=== PATIENT | female | born 1970 | race Hispanic/Latino ===

== ENCOUNTER 2017-08-14 09:33 | Emergency (ER) | payer BC, OTHER ==
[~2017-08-14] VITALS: Ht 162.6 cm; Wt 72.6 kg
[~2017-08-14 09:33] MED LIST: CARDURA2 MG PO; WELLBUTRIN SR150 MG PO
[2017-08-14] MEDS ORDERED: PENICILLIN G BENZATHINE LA 1.2 MU TBX IM STA (10:35)
[2017-08-14 11:52] VITALS: BP 105/62
== END 2017-08-14 10:40 | disposition home or self-care (01) ==
LOC: FSED 09:33
DX: J02.0 Streptococcal pharyngitis (principal); R50.9 Fever, unspecified
CPT/HCPCS: 71046; 83518; 87400; 99283; J0561

== ENCOUNTER → 2017-09-19 | Outpatient (CLI) | payer BC ==
--- NOTE | 2017-09-28 18:12 | Diagnostic Imaging Report ---
#[id number] - MGSCRBIL #BILATERAL DIGITAL SCREENING MAMMOGRAM WITH CAD: 09/19/2017 CLINICAL: Routine screening. Comparison is made to exams dated: 06/08/2014 mammogram, 03/24/2013 mammogram and 03/12/2013 mammogram - [facility]. Current study contains 4 films. The tissue of both breasts is heterogeneously dense. This may lower the sensitivity of mammography. Current study was also evaluated with a Computer Aided Detection (CAD) system. No significant masses, calcifications, or other findings are seen in either breast. There has been no significant interval change. IMPRESSION: BENIGN There is no mammographic evidence of malignancy. A 1 year screening mammogram is recommended. The patient will be notified by letter of the results. Lenny mccormick/prasanna:09/27/2017 13:47:39 Station Examiner: Linda CALDWELL(R)(M), [facility] letter sent: Normal Exam Mammogram BI-RADS: 2 Benign
== END ==
LOC: MAMMO 10:38
PROVIDERS: ATTEND Obstetrics & Gynecology
DX: Z12.31 Encounter for screening mammogram for malignant neoplasm of breast (principal)
CPT/HCPCS: 77067

== ENCOUNTER → 2019-03-06 | Outpatient (CLI) | payer BC ==
--- NOTE | 2019-03-06 15:33 | Diagnostic Imaging Report ---
MRI of the right foot with and without contrast. History: Stress fracture of right heel. Heel pain. Decreased range of motion. Pain not responding to conservative management. Technique: Multiplanar multisequence MRI of the right foot with and without intravenous contrast. 16 cc IV gadolinium contrast material was administered Comparison: None Findings: Abnormal soft tissue edema with abnormal contrast enhancement and underlying bone marrow edema at the medial cord of the plantar fascia with midsubstance degeneration and thickening involving the medial cord of the plantar fascia. This is best seen on sagittal series 5 image 9 through 11. No plantar fascial tear or retraction is seen. The Achilles tendon is intact. No acute fracture, subluxation or avascular necrosis. Specifically, no stress fracture is seen in the calcaneus or talus. Small tibiotalar joint effusion and synovitis. No ligamentous or tendon tear. The visualized muscles are normal in size, signal intensity and morphology. No talar dome osteochondral lesion. Impression: Findings most consistent with plantar fasciitis involving the medial cord of the plantar fascia at the inferior calcaneal insertion site. No tear or retraction is seen. There is abnormal bone marrow edema in the inferior posterior calcaneus with abnormal adjacent contrast enhancement. No acute fracture, subluxation or avascular necrosis. Specifically, no stress fracture is seen in the calcaneus or talus. Signed by: Dr. Wei Sewell M.D. on 03/06/2019 3:29 PM
== END ==
LOC: MRI 13:56
PROVIDERS: ATTEND Podiatrist Foot & Ankle Surgery
DX: M79.671 Pain in right foot (principal); M72.2 Plantar fascial fibromatosis; R60.9 Edema, unspecified

== ENCOUNTER 2019-05-13 14:56 | Outpatient (RCR) | payer BC | END 2019-05-15 | LOC: PT 14:56 | PROVIDERS: ATTEND Podiatrist Foot & Ankle Surgery | DX: M72.2 Plantar fascial fibromatosis (principal); M84.374A Stress fracture, right foot, initial encounter for fracture; M79.671 Pain in right foot; M25.671 Stiffness of right ankle, not elsewhere classified; M62.81 Muscle weakness (generalized); R26.2 Difficulty in walking, not elsewhere classified ==

== ENCOUNTER 2019-06-10 15:00 | Outpatient (RCR) | payer BC | END 2019-06-14 | LOC: PT 15:00 | PROVIDERS: ATTEND Podiatrist Foot & Ankle Surgery | DX: M84.374A Stress fracture, right foot, initial encounter for fracture (principal); M79.671 Pain in right foot; M72.2 Plantar fascial fibromatosis ==

== ENCOUNTER → 2019-08-26 | Outpatient (CLI) | payer BC ==
--- NOTE | 2019-08-26 16:58 | Diagnostic Imaging Report ---
HISTORY : Menorrhagia COMPARISON : None Comment: Ultrasound examination of the pelvis was performed transabdominally and transvaginally. The uterus is homogeneous in echotexture. The uterus measures 8.7 x 4.8 x 5.8 cm. The endometrial stripe appears unremarkable and measures 0.3 cm in maximum thickness. The right ovary measures 3.6 x 1.8 x 2.8 cm and contains an anechoic cyst which measures 1.7 x 1.5 x 1.8 cm cm. The left ovary measures 2.4 x 1.9 x 2.6 cm. There is no evidence of fluid in the cul-de-sac. IMPRESSION : Right ovarian cyst, almost certainly benign. No further follow-up imaging is recommended. Signed by: Marcio Vargas MD on 08/26/2019 4:56 PM
--- NOTE | 2019-09-01 09:10 | Diagnostic Imaging Report ---
#[id number] - MGSCRBIL #BILATERAL DIGITAL SCREENING MAMMOGRAM WITH CAD: 08/26/2019 CLINICAL: Routine screening. Comparison is made to exams dated: 09/19/2017 mammogram and 06/08/2014 mammogram - [facility]. Current study contains 4 films. The tissue of both breasts is heterogeneously dense. This may lower the sensitivity of mammography. Current study was also evaluated with a Computer Aided Detection (CAD) system. No significant masses, calcifications, or other findings are seen in either breast. IMPRESSION: NEGATIVE There is no mammographic evidence of malignancy. A 1 year screening mammogram is recommended. The patient will be notified by letter of the results. DARIANA ANN M.D. ct/penrad:08/29/2019 16:53:53 Sales And Operations Trainee: Linda CALDWELL(R)(M), [facility] letter sent: Normal Exam Mammogram BI-RADS: 1 Negative
== END ==
LOC: US 14:42
PROVIDERS: ATTEND Obstetrics & Gynecology
DX: Z12.31 Encounter for screening mammogram for malignant neoplasm of breast (principal); N92.1 Excessive and frequent menstruation with irregular cycle
CPT/HCPCS: 76830; 76856; 77067

== ENCOUNTER 2019-09-02 09:56 | Inpatient (IN) | payer BC ==
[2019-09-01 14:29] LABS: BASOPHILS # (AUTO) 0.1 (0.0-0.1); BASOPHILS % 0.7 % (0.0-1.0); EOSINOPHILS # (AUTO) 0.2 (0.0-0.4); EOSINOPHILS % 1.6 % (0.0-6.0); HEMATOCRIT 38.4 % (34.2-44.1); HEMOGLOBIN 12.8 g/dL (12.0-16.0); LYMPHOCYTES # (AUTO) 3.3 (1.0-3.2); LYMPHOCYTES % 33.7 % (18.0-39.1); MEAN CORPUSCULAR HEMOGLOBIN 31.3 pg (28-32); MEAN CORPUSCULAR HGB CONC 33.3 g/dL (31-35); MEAN CORPUSCULAR VOLUME 93.9 fL (81-99); MONOCYTES # (AUTO) 0.5 (0.2-0.8); MONOCYTES % 5.5 % (4.4-11.3); NEUTROPHILS # (AUTO) 5.8 (2.1-6.9); NEUTROPHILS % 58.2 % (38.7-80.0); PLATELET COUNT 358 x10e3/uL (140-360); RED BLOOD COUNT 4.09 x10e6/uL (3.6-5.1)
[2019-09-01 14:47] LABS: ALANINE AMINOTRANSFERASE 12 IU/L (0-55); ALBUMIN 3.8 g/dL (3.5-5.0); ALBUMIN/GLOBULIN RATIO 1.1 (0.8-2.0); ALKALINE PHOSPHATASE 62 IU/L (40-150); ANION GAP 15.1 mmol/L (8-16); BLOOD UREA NITROGEN 12 mg/dL (7-26); BUN/CREATININE RATIO 15 (6-25); CALCIUM 9.4 mg/dL (8.4-10.2); CARBON DIOXIDE 24 mmol/L (22-29); CHLORIDE 104 mmol/L (98-107); CREATININE, SERUM 0.78 mg/dL (0.57-1.11); EST GLOMERULAR FILTRATION RATE > 60 ML/MIN (60-); GLUCOSE 126 mg/dL (74-118); POTASSIUM 4.1 mmol/L (3.5-5.1); SODIUM 139 mmol/L (136-145)
[~2019-09-02] VITALS: Ht 162.6 cm; Wt 81.6 kg
[2019-09-02] MEDS ORDERED: CEFAZOLIN SOD 1 GM/NS 50ML 100 ML IV ONE (11:05)
[2019-09-02] MEDS ORDERED: BUPIVACAINE 0.25% 30ML SDV INJ ONE (12:45)
[2019-09-02] MEDS ORDERED: HYDROMORPHONE 2MG/ML 2 MG/ML ML ONE (12:45)
[2019-09-02] MEDS ORDERED: BUPIVACAINE LIPOSOME/PF 266 MG/20 ML IJ ONE (12:46)
[2019-09-02] MEDS ORDERED: ACETAMINOPHEN 1000 MG/100 ML 100 ML IV ONE (12:46)
[2019-09-02] MEDS ORDERED: NALOXONE HCL INJ 0.4 MG/ML AMP IV PRN (14:30)
[2019-09-02] MEDS ORDERED: MORPHINE SULFATE 1 MG/ML 30ML PCA IV PRN (14:30)
[2019-09-02] MEDS ORDERED: DOCUSATE SODIUM 100 MG CAP PO PRN (14:30)
[2019-09-02] MEDS ORDERED: SIMETHICONE 80 MG CHEW PO PRN (14:30)
[2019-09-02] MEDS ORDERED: DIPHENHYDRAMINE HCL 25 MG CAP PO PRN (14:30)
[2019-09-02] MEDS ORDERED: BISACODYL 5 MG TAB EC PO PRN (14:30)
[2019-09-02] MEDS ORDERED: ONDANSETRON HCL INJ 2MG/ML 2ML 2 MG/ML VIAL IV PRN (14:30)
[2019-09-02] MEDS ORDERED: SUGAMMADEX SODIUM 200 MG/2 ML VIAL IV ONE (15:05)
[2019-09-02] MEDS ORDERED: MORPHINE SULFATE INJ 4 MG/ML INJ 1ML ONE (16:34)
[2019-09-02] MEDS ORDERED: PHENYLEPHRINE HCL 1% 10 MG/ML VIAL ONE (17:44)
[2019-09-02] MEDS ORDERED: PROPOFOL IV EMULSION 10 MG/ML 20 ML VIAL ONE (17:44)
[2019-09-02] MEDS ORDERED: DEXAMETHASONE SOD PHOS INJ 4 MG/ML VIAL ONE (17:44)
[2019-09-02] MEDS ORDERED: SEVOFLURANE INHAL SOLN 250 ML PEN BTL ONE (17:44)
[2019-09-02] MEDS ORDERED: ONDANSETRON HCL INJ 2MG/ML 2ML 2 MG/ML VIAL ONE (17:44)
[2019-09-02] MEDS ORDERED: KETOROLAC TROMETHAMINE 30 MG/ML VIAL ONE (17:44)
[2019-09-02] MEDS ORDERED: LIDOCAINE HCL 2% LOCAL INJ 5 ML SDV VIAL INJ ONE (17:44)
[2019-09-02] MEDS ORDERED: ROCURONIUM BROMIDE 10 MG/ML 5ML VIAL ONE (17:44)
[2019-09-02 18:08] VITALS: BP 126/84
[2019-09-02 18:20] VITALS: BP 126/84
[2019-09-02] MEDS ORDERED: FENTANYL CITRATE/PF 100MCG/2 ML INJ ONE (18:26)
[2019-09-02] MEDS ORDERED: MIDAZOLAM HCL 2 MG/2 ML VIAL ONE (18:26)
--- NOTE | 2019-09-02 18:29 | NUR ---
patient received from OR via stretcher. see admit assess. ML abd incision with dressing and abd binder in place. LOUIE drain x1 to LLQ with serosanguineous drainage. PRINTED CIRCUIT BOARD REWORKER morphine in place, radha's and scd's in place. IV infusing well. vitals stable with no distress.
[2019-09-02 20:00] VITALS: BP 117/65
[2019-09-02] MEDS: LACTATED RINGER'S 1,000 ML IV SCH ×2 (20:22→22:30)
[2019-09-02 20:25] VITALS: BP 117/65
--- NOTE | 2019-09-02 20:39 | Operative Report ---
DATE OF PROCEDURE: 09/02/2019 SURGEON: Royce Ahmadi MD PREOPERATIVE DIAGNOSES: 1. Menorrhagia. 2. Dysmenorrhea. POSTOPERATIVE DIAGNOSES: 1. Menorrhagia. 2. Dysmenorrhea. PROCEDURES: 1. Total abdominal hysterectomy. 2. Right salpingo-oophorectomy. 3. Left salpingectomy. SLIP FILLER: Robbie Reich MD ANESTHESIA: General. ESTIMATED BLOOD LOSS: 50 mL. COMPLICATIONS: None. SPECIMENS REMOVED: Uterus, cervix, right ovary, and bilateral fallopian tubes to Pathology. SIGNIFICANT FINDINGS: Grossly normal uterus, tubes, and ovaries. TECHNIQUE: The patient was taken to the operating room where general anesthesia was administered. She was then prepped and draped in the usual sterile fashion. This procedure was done concurrently with a ventral hernia repair, which was done by Dr. Robbie Reich. That portion of the procedure will be dictated by him. The horizontal lower abdominal skin incision was made by Dr. Reich and was dissected down to the level of the fascia and this fascia exposed and an infraumbilical midline vertical fascial incision was made. Once this was done, the peritoneum was entered sharply and the peritoneal incision extended with sharp dissection with good visualization of the bladder. The Bookwalter retractor was then placed and the bowel was packed away with moistened laparotomy sponges. The uterus was identified and grasped with a thyroid Luis Carlos clamp at the fundus and the left arm ligament was identified and doubly suture ligated with 0 Vicryl suture and then transected with Bovie. The broad ligament was then opened anteriorly and posteriorly and the vesicouterine peritoneum dissected anteriorly and the bladder dissected off the uterus and cervix anteriorly. Once this was done, a window was created in the posterior broad ligament and the uteroovarian ligament was doubly clamped and transected and the pedicle double ligated with 0 Vicryl suture with excellent hemostasis noted. The uterine artery was then skeletonized on the left side and then clamped with a Flavia clamp and transected and suture ligated with excellent hemostasis noted. Attention was then turned to the right side where the round ligament was identified and grasped with a Jaylen clamp and was ligated with 0 Vicryl suture and transected and the broad ligament was opened anteriorly and posteriorly dissecting the remaining bladder off the cervix anteriorly. The posterior broad ligament was then opened and a curve Flavia clamp placed across the infundibulopelvic ligament and the ligament was transected thus removing the right fallopian tube and ovary, and the ligament was doubly suture ligated with 0 Vicryl with excellent hemostasis noted. The uterine artery on the right side was then skeletonized and clamped and transected and the pedicle suture ligated with 0 Vicryl with excellent hemostasis noted. At this point, straight Flavia clamps were used to serially transect along the edge of the cervix and each pedicle was transected with the scalpel and suture ligated with 0 Vicryl suture. This was done on both sides until the level of the vagina was reached, and at that point, the curved Flavia clamps were placed across the lower portion of the cervix going into the vagina and these pedicles were transected and suture ligated and transfixed to the ipsilateral uterosacral ligament. Once this was done and entry into the vagina was confirmed, Isabel scissors were used to amputate the uterus, cervix, and right fallopian tube and ovary. The vaginal cuff was then closed with a series of approximately six 0 Vicryl [id number] stitches and following complete closure, the pelvis was irrigated and excellent hemostasis was noted. The bladder was inspected and no injuries to the bladder were noted and clear urine was noted. Following this, attention was turned to the left fallopian tube, which was grasped with a Jaylen clamp and a curved a Flavia clamp was placed across the base of the tube and the tube was removed and the pedicle doubly suture ligated with 0 Vicryl suture. The left ovary was again examined and appeared normal and was left in place. The pelvis was once again irrigated and excellent hemostasis was noted throughout. At this point, all laparotomy sponges were removed from the patient's abdomen and the Bookwalter retractor was removed. The abdomen, fascia, and skin were then closed by Dr. Reich and this portion of the procedure will be dictated by him. The patient tolerated this portion of the procedure well. Royce Ahmadi MD BT/MODL /[id number]
--- NOTE | 2019-09-02 20:40 | NUR ---
PATIENT IN STABLE CONDITION, NO SIGNS OF DISTRESS NOTED. BOYFRIEND AT BEDSIDE AND PATIENT VOICES PAIN AT A LEVEL OF 7, SNOW GROOMER PUMP IN PLACE. NASAL CANNULA INTACT AND RUNNING AT 2 LITERS, ABDOMINAL BINDER IN PLACE, CLEAN DRY AND INTACT. KITCHEN CATHETER IS INTACT AND PATENT. BED IS IN LOWEST POSITION, BOTH SIDE RAILS ARE UP, CALL LIGHT IS WITHIN REACH, WILL CONTINUE TO MONITOR.
[2019-09-02] MEDS ORDERED: ZOLPIDEM TARTRATE 5 MG TAB PO PRN (21:00)
[2019-09-02] MEDS: CEFAZOLIN SOD 1 GM/NS 50ML 50 ML IV SCH (22:06)
[2019-09-03] VITALS (9 sets, daily range): BP systolic 104–127; BP diastolic 55–72
--- NOTE | 2019-09-03 00:59 | Operative Report ---
DATE OF PROCEDURE: 09/02/2019 SURGEON: Robbie Reich MD PREOPERATIVE DIAGNOSIS: Ventral hernia. POSTOPERATIVE DIAGNOSIS: Ventral hernia. OPERATION PERFORMED: Repair of ventral hernia. ANESTHESIA: General. COMPLICATIONS: None. ESTIMATED BLOOD LOSS: 50 mL. DESCRIPTION OF PROCEDURE: With the patient lying in bed in the supine position under good general endotracheal anesthesia, the abdomen was prepped with Betadine solution and draped in the usual manner. A transverse lower abdominal incision was then made, it was carried down through the subcutaneous tissue. The old scar was excised. After this was done, the abdomen was dissected all ports along the midline and the flaps were developed all the way up to the midline and the hernia was identified. Dissection was carried all the way up to the umbilicus. The midline fascia and the hernia sac were then opened along the midline and the peritoneum was opened and the abdomen was entered. The contents were reduced back to the intraabdominal cavity and the abdomen was then exposed. At this point, the case was turned over to Dr. Ahmadi, who proceeded to do abdominal hysterectomy and he will dictate that on a separate note. Once Dr. Ahmadi was finished, the case was then turned back over to nv. Gloves and instruments were changed. The peritoneum was then closed with a running suture of #1 Vicryl and the fascia and the hernia were then repaired with #1 PDS and #1 Vicryl. This gave us satisfactory closure without any tension. There was also some weakness in the right lower quadrant in the area of the previous appendectomy and this defect was repaired as well using interrupted sutures of #1 Vicryl. Once this was done, the whole area was thoroughly irrigated. Perfect hemostasis was ascertained. A 10 flat Richar-Garcia drain was left in the subcutaneous tissue and brought out through a separate stab wound incision and the wound was then closed in layers. The subcutaneous tissue was approximated with 2-0 and 3-0 Vicryl and the skin was closed with subcuticular 5-0 Monocryl. Benzoin, Steri-Strips, and dressings were applied. The sponge, lap, and needle count was correct. The patient tolerated the procedure well and returned to the recovery room in stable condition. Robbie Reich MD JLR/AMILCAR Mnedoza: 09/02/2019 21:53:23 /[id number]
[2019-09-03] MEDS: KETOROLAC TROMETHAMINE 30 MG/ML VIAL IM PRN (02:24)
[2019-09-03] MEDS: LACTATED RINGER'S 1,000 ML IV SCH ×3 (04:49→23:32)
[2019-09-03] MEDS: CEFAZOLIN SOD 1 GM/NS 50ML 50 ML IV SCH ×2 (05:38→14:00)
[2019-09-03 05:47] LABS: BASOPHILS % 0.2 % (0.0-1.0); HEMATOCRIT 31.3 % (34.2-44.1); HEMOGLOBIN 10.4 g/dL (12.0-16.0); LYMPHOCYTES % 11.3 % (18.0-39.1); MEAN CORPUSCULAR HEMOGLOBIN 31.4 pg (28-32); MEAN CORPUSCULAR HGB CONC 33.2 g/dL (31-35); MEAN CORPUSCULAR VOLUME 94.6 fL (81-99); MONOCYTES # (AUTO) 1.3 (0.2-0.8); NEUTROPHILS # (AUTO) 14.6 (2.1-6.9); NEUTROPHILS % 81.1 % (38.7-80.0); PLATELET COUNT 297 x10e3/uL (140-360); RED BLOOD COUNT 3.31 x10e6/uL (3.6-5.1); RED CELL DISTRIBUTION WIDTH 11.9 % (11.7-14.4)
[2019-09-03 06:07] LABS: ALANINE AMINOTRANSFERASE 10 IU/L (0-55); ALKALINE PHOSPHATASE 54 IU/L (40-150); ANION GAP 11.2 mmol/L (8-16); CALCIUM 8.3 mg/dL (8.4-10.2); CARBON DIOXIDE 23 mmol/L (22-29); CHLORIDE 104 mmol/L (98-107); CREATININE, SERUM 0.69 mg/dL (0.57-1.11); EST GLOMERULAR FILTRATION RATE > 60 ML/MIN (60-); GLUCOSE 117 mg/dL (74-118); POTASSIUM 4.2 mmol/L (3.5-5.1); SODIUM 134 mmol/L (136-145)
[2019-09-03 06:37] LABS: BLOOD UREA NITROGEN 9 mg/dL (7-26); BUN/CREATININE RATIO 13 (6-25)
--- NOTE | 2019-09-03 10:30 | NUR ---
WITH STANDBY ASSIST, PT STOOD AT BEDSIDE, ASSISTED TO CHANGE INTO OWN PAJAMAS, PT TOLERATED WELL,
[2019-09-03] MEDS: PANTOPRAZOLE 40 MG 10ML VIAL IV SCH (11:47)
--- NOTE | 2019-09-03 12:15 | NUR ---
PT REQUESTING TO HAVE AGENCY APPOINTMENTS SUPERVISOR REMOVED, SPOKE WITH MD PATEL, ORDERS NOTED FOR DILAUDID
[2019-09-03] MEDS: ONDANSETRON HCL INJ 2MG/ML 2ML 2 MG/ML VIAL IV PRN ×3 (13:15→19:57)
[2019-09-03] MEDS: HYDROMORPHONE 1MG/1ML INJ IV PRN ×5 (13:15→23:32)
--- NOTE | 2019-09-03 13:39 | NUR ---
Progress note - POD #1 S - doing well, pain controlled, tolerating liquids, no fever, no vomitting O - VSS Abd - soft, NT; bandage dry Ext - no calf tenderness A/P - POD #1 continue postop care advance diet as tolerated continue GROCERY SHOPPER Consider discharge home tomorrow
--- NOTE | 2019-09-03 17:49 | NUR ---
PT TOLERATING SMALL AMOUNTS OF FULL LIQUIDS AT THIS TIME
--- NOTE | 2019-09-03 18:50 | NUR ---
RECEIVED BEDSIDE SHIFT REPORT FROM PREVIOUS NURSE. CALL LIGHT WITHIN REACH. PATIENT IN BED. FAMILY AT BEDSIDE. PATIENT IS A&OX3.
[2019-09-04] VITALS (8 sets, daily range): BP systolic 113–137; BP diastolic 60–77
[2019-09-04] MEDS: HYDROMORPHONE 1MG/1ML INJ IV PRN ×3 (03:04→11:57)
[2019-09-04] MEDS: LACTATED RINGER'S 1,000 ML IV SCH ×3 (06:30→16:27)
--- NOTE | 2019-09-04 07:09 | NUR ---
GAVE BEDSIDE SHIFT REPORT FROM PREVIOUS NURSE. CALL LIGHT WITHIN REACH. PATIENT IN BED. PATIENT IS A&OX3. PATIENT REFUSES TO TAKE OUT THE KITCHEN NOW. KITCHEN DRAINING WELL.
[2019-09-04] MEDS: ONDANSETRON HCL INJ 2MG/ML 2ML 2 MG/ML VIAL IV PRN (08:43)
[2019-09-04] MEDS: PANTOPRAZOLE 40 MG 10ML VIAL IV SCH (08:54)
--- NOTE | 2019-09-04 08:59 | NUR ---
Progress note - POD #2 S - Doing well, pain controlled, tolerating diet, scant bleeding, no fever 0 - VSS, AF Abd - soft, NT; bandage dry A/P - POD #2 continue postop care transition to PO pain medications D/C home this afternoon if pain well controlled Rx tylenol #3, Charly
--- NOTE | 2019-09-04 09:03 | NUR ---
MEDICATED PER MD ORDER FOR 03/25 PAIN, PT VERBALIZED UNDERSTANDING, ATTEMPTED TO SIT IN CHAIR, ONCE MEDICATION ADMINISTERED, PT STATES , WANTS TO STAY IN BED, EDUCATED ON IMPORTANCE OF GETTING KITCHEN OUT, PT STATES "AFTER BREAKFAST", MD AWARE
--- NOTE | 2019-09-04 09:03 | NUR ---
MD PETERS INTO SEE PT, DISCUSSED POSSIBLE DISCHARGE LATER TODAY, PT VERBALIZED UNDERSTANDING
--- NOTE | 2019-09-04 09:55 | NUR ---
Sparks discontinued as ordered. pt tolerated well. 900cc residual noted.
[2019-09-04] MEDS: HYDROCODONE/APAP 7.5MG-325MG 1 EA TAB PO PRN ×3 (13:46→21:26)
[2019-09-04] MEDS ORDERED: MAGNESIUM HYDROXIDE 30 ML UDC PO ONE ×2 (17:00→21:00)
--- NOTE | 2019-09-04 17:55 | NUR ---
SITTING IN BEDSIDE CHAIR, VOICES NO NEEDS AT THIS TIME,
--- NOTE | 2019-09-04 18:55 | NUR ---
RECEIVED BEDSIDE SHIFT REPORT FROM PREVIOUS NURSE. CALL LIGHT WITHIN REACH. PATIENT ON THE TOILET. PATIENT IS A&OX3 AND AMBULATES.
[2019-09-04] MEDS: BISACODYL 10 MG SUPP PR SCH (19:29)
[2019-09-04] MEDS ORDERED: BISACODYL 10 MG SUPP PR ONE (20:00)
--- NOTE | 2019-09-04 22:50 | NUR ---
PATIENT FINALLY HAD A BOWEL MOVEMENT
[2019-09-05] VITALS: BP 100/78
[2019-09-05] MEDS: LACTATED RINGER'S 1,000 ML IV SCH ×2 (00:33→09:38)
[2019-09-05] MEDS: HYDROMORPHONE 1MG/1ML INJ IV PRN (00:57)
[2019-09-05 04:00] VITALS: BP 106/64
[2019-09-05] MEDS: HYDROCODONE/APAP 7.5MG-325MG 1 EA TAB PO PRN ×2 (05:42→14:42)
--- NOTE | 2019-09-05 06:55 | NUR ---
Received patient ambulates around the room with nonskid socks on. Respiration even and unlabored without SOB. Reports pain is tolerable at this time. Call light within reach.
--- NOTE | 2019-09-05 07:24 | NUR ---
GAVE BEDSIDE SHIFT REPORT TO ONCOMING NURSE. CALL LIGHT WITHIN REACH. PATIENT IN BED. PATIENT IS A&OX3 AND AMBULATES
[2019-09-05 07:30] VITALS: BP 120/83
--- NOTE | 2019-09-05 08:57 | NUR ---
Progress note - POD #3 S- Doing well, pain controlled, tolerating diet, + flatus, + BM, voiding, no fever, scant bleeding 0 - VSS, AF Abd - soft, NT; bandage dry A/P - POD #3 d/c home rx tylenol #3, Zofran F/U 2 wks
[2019-09-05] MEDS: PANTOPRAZOLE 40 MG 10ML VIAL IV SCH ×2 (09:20→09:27)
[2019-09-05] MEDS: BISACODYL 10 MG SUPP PR SCH (09:27)
[2019-09-05] MEDS: KETOROLAC TROMETHAMINE 30 MG/ML VIAL IM PRN (09:27)
[2019-09-05 09:45] VITALS: BP 120/83
[2019-09-05 11:42] VITALS: BP 123/68
[2019-09-05 16:00] VITALS: BP 114/68
--- NOTE | 2019-09-05 17:43 | NUR ---
PIV to left hand discontinued, catheter tip intact, no bleeding noted. Discharge instruction and education given. Prescription given, verbalized understanding. Respiration even and unlabored without SOB. Transported via wheelchair to private vehicle with all personal belongings taken.
--- NOTE | 2019-09-06 01:50 | Discharge Summary ---
HOSPITAL COURSE: The patient is 49-year-old female, who has been followed by myself in the office for a history of heavy menses and severe dysmenorrhea. Her treatment options were reviewed with her and she elected to proceed with total abdominal hysterectomy, bilateral salpingectomy as well as right oophorectomy. She desired to leave the left ovary in place. She also has been followed by Dr. Robbie Reich for ventral hernia and has been scheduled to concurrently undergo a ventral hernia repair by him. She was admitted on 09/02/2019 and underwent both of these procedures without complications. Estimated blood loss for both portions of the procedure totalled 100 mL. Please see operative notes for further details of the procedures. She had an uncomplicated postoperative course. On postoperative day #1, she was tolerating her diet. Her pain was well controlled on Dilaudid. She remained afebrile. On postoperative day #2, her Sparks catheter was removed and she was transitioned to oral pain medications. She was ambulating. She had scant bleeding. On postoperative day #3, she continued to do well with her pain well controlled. She was tolerating regular diet, passing flatus, and had had bowel movement. She was voiding well. She remained afebrile and was ambulating and she was discharged home with prescriptions for Tylenol No. 3 and Zofran, and instructed to follow up with myself and with Dr. Reich within 2 weeks. Royce Ahmadi MD BT/AMILCAR /[id number]
== END 2019-09-05 18:20 | disposition home or self-care (01) | DRG 355 ==
LOC: OR 09:56 → PACU V 14:40 → MED/SURG 17:44
PROVIDERS: ADMIT Obstetrics & Gynecology; ATTEND Obstetrics & Gynecology
PROC: 0UTC0ZZ Resection of Cervix, Open Approach (ICD-10-PCS; 2019-09-02)
PROC: 0UT00ZZ Resection of Right Ovary, Open Approach (ICD-10-PCS; 2019-09-02)
PROC: 0UT60ZZ Resection of Left Fallopian Tube, Open Approach (ICD-10-PCS; 2019-09-02)
PROC: 0WQF0ZZ Repair Abdominal Wall, Open Approach (ICD-10-PCS; principal; 2019-09-02 12:00)
PROC: 0UT90ZZ Resection of Uterus, Open Approach (ICD-10-PCS; 2019-09-02 12:00)
DX: K43.9 Ventral hernia without obstruction or gangrene (principal); N94.6 Dysmenorrhea, unspecified; N92.0 Excessive and frequent menstruation with regular cycle; I10 Essential (primary) hypertension; F32.9 Major depressive disorder, single episode, unspecified
CPT/HCPCS: 36415; 80053; 84702; 85025; 86850; 86900; 88307; 88342; 93005; J0690; J1100; J1170; J1885; J2001; J2250; J2270; J2370; J2405; J3010; J7121

== ENCOUNTER → 2020-07-15 | Outpatient (CLI) | payer OTHER ==
[~2020-07-15] MED LIST changes: +COVID-19 VACC, MRNA(MODERNA)/PF 100 MCG/0.5 ML VIAL IM ONE
== END ==
LOC: VACCPMC 08:30
DX: Z23 Encounter for immunization (principal); Z20.828 Contact with and (suspected) exposure to other viral communicable diseases

== ENCOUNTER → 2020-08-19 | Outpatient (CLI) | payer OTHER | END | DRG 951 | LOC: VACCPMC 08:11 | DX: Z23 Encounter for immunization (principal); Z20.822 Contact with and (suspected) exposure to COVID-19 | CPT/HCPCS: 0012A; 91301 ==

== ENCOUNTER → 2021-04-01 | Outpatient (CLI) | payer OTHER ==
[~2021-04-01] MED LIST changes: -COVID-19 VACC, MRNA(MODERNA)/PF 100 MCG/0.5 ML VIAL IM ONE
== END ==
LOC: RAD 14:47
PROVIDERS: ATTEND Surgery
DX: M54.2 Cervicalgia (principal)
CPT/HCPCS: 72050

== ENCOUNTER → 2021-05-09 | Outpatient (CLI) | payer OTHER | LOC: MRI 14:26 | PROVIDERS: ATTEND Surgery | DX: M54.2 Cervicalgia (principal); M62.81 Muscle weakness (generalized) | CPT/HCPCS: 72141 ==

== ENCOUNTER → 2021-05-12 | Outpatient (CLI) | payer OTHER ==
[~2021-05-12] MED LIST changes: +COVID-19 VACC, MRNA(MODERNA)/PF 100 MCG/0.5 ML VIAL IM ONE
== END ==
LOC: VACCPMC 09:25
DX: Z23 Encounter for immunization (principal); Z20.822 Contact with and (suspected) exposure to COVID-19

== ENCOUNTER → 2022-04-17 | Outpatient (CLI) | payer BC ==
[~2022-04-17] MED LIST changes: -COVID-19 VACC, MRNA(MODERNA)/PF 100 MCG/0.5 ML VIAL IM ONE
== END ==
LOC: MAMMO 12:08
PROVIDERS: ATTEND Obstetrics & Gynecology
DX: Z12.31 Encounter for screening mammogram for malignant neoplasm of breast (principal)
CPT/HCPCS: 77067

== ENCOUNTER 2022-09-03 15:17 | Emergency (ER) | payer BC ==
[~2022-09-03] VITALS: Ht 162.6 cm; Wt 75.3 kg
[2022-09-03] MEDS ORDERED: IBUPROFEN 600 MG TAB PO STA (15:21)
[2022-09-03] MEDS ORDERED: HYDROCODONE/APAP 5MG-325MG TAB PO ONE (15:30)
[2022-09-03] MEDS ORDERED: HYDROCODONE/APAP 7.5MG-325MG 1 EA TAB PO PRN (15:30)
[2022-09-03] MEDS ORDERED: ESTRADIOL1 MG PO (15:36)
[2022-09-03] MEDS ORDERED: IBUPROFEN 600 MG TAB ONE (15:41)
[2022-09-03] MEDS ORDERED: HYDROCODONE/APAP 5MG-325MG TAB ONE (15:42)
[2022-09-03] MEDS ORDERED: HYDROCODON-ACE1 EA15 PO ×2 (17:03→17:06)
[2022-09-05] MEDS ORDERED: HYDROCODON-ACE1 EA12 PO (14:01)
== END 2022-09-03 17:19 | disposition home or self-care (01) ==
LOC: FSED 15:21
DX: S82.61XA Displaced fracture of lateral malleolus of right fibula, initial encounter for closed fracture (principal); I10 Essential (primary) hypertension; F32.A Depression, unspecified; W17.89XA Other fall from one level to another, initial encounter; Z79.899 Other long term (current) drug therapy
CPT/HCPCS: 99284